=== PATIENT | male | born 1945 | race Caucasian/White ===

== ENCOUNTER 2021-08-15 22:17 | Inpatient (IN) ==
[2021-08-16] MEDS ORDERED: Ondansetron ODT 4 MG TAB.RAPDIS SL PRN (04:55)
[2021-08-16] MEDS ORDERED: Naloxone 0.4 MG/ML INJ IVP PRN (04:55)
[2021-08-16 06:01] LABS: Hemoglobin 10.9 g/dL (12.9-16.9)
[2021-08-16 06:03] LABS: Hematocrit 31.8 % (37.5-50.1); Immature Platelets 17.4 % (1.1-6.1); Mean Corpuscular HGB Conc 34.3 g/dL (31.6-35.5); Mean Corpuscular Hemoglobin 32.8 pg (28.0-33.3); Mean Corpuscular Volume 95.8 fL (83.0-100.0); Mean Platelet Volume 14.1 fL (9.4-12.4); Red Blood Count 3.32 M/mcL (4.19-5.50); Red Cell Distribution Width 13.4 % (11.5-14.5); White Blood Count 16.9 K/mcL (4.3-11.1)
[2021-08-16 06:09] LABS: INR 1.9; Prothrombin Time 20.6 Seconds (9.4-12.1)
[2021-08-16 06:12] LABS: Platelet Count 40 K/mcL (140-400)
[2021-08-16 06:19] LABS: Lymphocytes # 0.7 K/mcL (0.6-4.6); Monocytes # 0.3 K/mcL (0.0-1.3); Neutrophils # 15.6 K/mcL (1.6-8.9); Platelet Estimate Decreased (Normal)
[2021-08-16 06:23] LABS: Albumin 3.1 g/dL (3.5-5.7); Albumin/Globulin Ratio 1.3 (1.1-2.2); Bilirubin,Total 1.9 mg/dL (0.3-1.0); Calcium 7.7 mg/dL (8.6-10.3); Globulin 2.3 g/dL (2.4-3.5); Magnesium 1.9 mg/dL (1.6-2.6); Phosphorous 4.3 mg/dL (2.7-4.5); Potassium 4.2 mEq/L (3.5-5.1); Total Protein 5.4 g/dL (6.4-8.9)
[2021-08-16] MEDS ORDERED: *HR* LORazepam 2 MG/ML VIAL IVP PRN ×3 (07:16)
[2021-08-16] MEDS: Ringers Solution, Lactated 1,000 ML IVC SCH ×2 (07:32→09:59)
[2021-08-16] MEDS: Norepinephrine 4 MG/254 ML IV.SOLN IVC SCH ×2 (07:33→08:37)
[2021-08-16] MEDS: Vitamin B Complex/Vit C/Vit E 1 EACH TABLET PO SCH (08:37)
[2021-08-16] MEDS: Folic Acid 1 MG TABLET PO SCH (08:37)
[2021-08-16] MEDS: Thiamine (B-1) 200 MG in 0.9 % Sodium Chloride 50 ML IVPB SCH (09:57)
[2021-08-16] MEDS ORDERED: Vancomycin 1,500 MG/265 ML IV.SOLN IVPB ONE (10:20)
[2021-08-16] MEDS: Piperacillin/Tazobactam 3.375 GM in 0.9 % Sodium Chloride Mini Bag 100 ML IVPB SCH ×2 (10:34→18:34)
[2021-08-16] MEDS ORDERED: Isovue-370 500 ML BOTTLE IVP ONE (15:28)
[2021-08-16] MEDS ORDERED: Heparin 1,000 UNITS/500 mL 500 ML ONE (16:09)
[2021-08-16] MEDS ORDERED: *HR* Midazolam HCl 2 MG/2 ML VIAL ONE (16:41)
[2021-08-16] MEDS ORDERED: Piperacillin/Tazobactam 3.375 GM in 0.9 % Sodium Chloride Mini Bag 100 ML IVPB SCH (18:00)
[2021-08-17] MEDS ORDERED: Vancomycin 1 EACH in 0.9 % Sodium Chloride 250 ML IVPB PRN (02:00)
[2021-08-17] MEDS: Norepinephrine 4 MG/254 ML IV.SOLN IVC SCH (03:51)
[2021-08-17 04:23] LABS: Hematocrit 30.7 % (37.5-50.1); Hemoglobin 10.7 g/dL (12.9-16.9); Immature Platelets 19.4 % (1.1-6.1); Mean Corpuscular HGB Conc 34.9 g/dL (31.6-35.5); Mean Corpuscular Hemoglobin 33.1 pg (28.0-33.3); Mean Platelet Volume 13.7 fL (9.4-12.4); Red Blood Count 3.23 M/mcL (4.19-5.50); Red Cell Distribution Width 13.7 % (11.5-14.5); White Blood Count 15.7 K/mcL (4.3-11.1)
[2021-08-17 04:30] LABS: INR 1.3
[2021-08-17 04:35] LABS: Platelet Count 39 K/mcL (140-400)
[2021-08-17 04:45] LABS: Albumin 2.9 g/dL (3.5-5.7); Albumin/Globulin Ratio 1.1 (1.1-2.2); Bilirubin,Total 0.9 mg/dL (0.3-1.0); Calcium 7.8 mg/dL (8.6-10.3); Globulin 2.6 g/dL (2.4-3.5); Magnesium 2.2 mg/dL (1.6-2.6); Phosphorous 3.2 mg/dL (2.7-4.5); Potassium 3.8 mEq/L (3.5-5.1); Total Protein 5.5 g/dL (6.4-8.9)
[2021-08-17 04:55] LABS: Lymphocytes # 0.9 K/mcL (0.6-4.6); Monocytes # 0.3 K/mcL (0.0-1.3); Neutrophils # 14.1 K/mcL (1.6-8.9); Platelet Estimate Marked Decrease (Normal)
[2021-08-17] MEDS: Piperacillin/Tazobactam 3.375 GM in 0.9 % Sodium Chloride Mini Bag 100 ML IVPB SCH ×3 (05:39→21:47)
[2021-08-17] MEDS: Vitamin B Complex/Vit C/Vit E 1 EACH TABLET PO SCH (08:07)
[2021-08-17] MEDS: Thiamine (B-1) 200 MG in 0.9 % Sodium Chloride 50 ML IVPB SCH (08:07)
[2021-08-17] MEDS: Folic Acid 1 MG TABLET PO SCH (08:07)
[2021-08-17] MEDS ORDERED: Vancomycin 1,250 MG/262.5 ML IV.SOLN IVPB SCH (14:00)
[2021-08-18] MEDS: Piperacillin/Tazobactam 3.375 GM in 0.9 % Sodium Chloride Mini Bag 100 ML IVPB SCH ×3 (05:01→22:26)
[2021-08-18] MEDS ORDERED: Naloxone 0.4 MG/ML INJ IVP PRN (07:13)
[2021-08-18] MEDS ORDERED: Vancomycin 1 EACH in 0.9 % Sodium Chloride 250 ML IVPB PRN (07:13)
[2021-08-18] MEDS ORDERED: *HR* LORazepam 2 MG/ML VIAL IVP PRN ×3 (07:13)
[2021-08-18] MEDS ORDERED: Perflutren Lipid Microsphere 1.3 ML in 0.9 % Sodium Chloride 8.7 ML IVP PRN (07:13)
[2021-08-18] MEDS ORDERED: Ondansetron ODT 4 MG TAB.RAPDIS SL PRN (07:13)
[2021-08-18] MEDS: Norepinephrine 4 MG/254 ML IV.SOLN IVC SCH (07:17)
[2021-08-18] MEDS: Vitamin B Complex/Vit C/Vit E 1 EACH TABLET PO SCH (08:07)
[2021-08-18] MEDS: Folic Acid 1 MG TABLET PO SCH (08:07)
[2021-08-18] MEDS ORDERED: Thiamine (B-1) 200 MG in 0.9 % Sodium Chloride 50 ML IVPB SCH (09:00)
[2021-08-18 09:40] LABS: Red Cell Distribution Width 13.5 % (11.5-14.5)
[2021-08-18 09:42] LABS: Hematocrit 33.2 % (37.5-50.1); Immature Platelets 21.6 % (1.1-6.1); Mean Corpuscular HGB Conc 33.1 g/dL (31.6-35.5); Mean Corpuscular Hemoglobin 32.2 pg (28.0-33.3); Mean Corpuscular Volume 97.1 fL (83.0-100.0); Mean Platelet Volume 14.5 fL (9.4-12.4); Red Blood Count 3.42 M/mcL (4.19-5.50); White Blood Count 12.7 K/mcL (4.3-11.1)
[2021-08-18 09:47] LABS: Platelet Count 41 K/mcL (140-400)
[2021-08-18 10:02] LABS: Alanine Aminotransferase 71 Units/L (7-52); Albumin/Globulin Ratio 1.2 (1.1-2.2); Alkaline Phosphatase 63 Units/L (34-104); Aspartate Amino Transferase 22 Units/L (13-39); BUN/Creatinine Ratio 31 (6-26); Bilirubin,Total 0.6 mg/dL (0.3-1.0); Blood Urea Nitrogen 43 mg/dL (8-23); Calcium 8.1 mg/dL (8.6-10.3); Carbon Dioxide 25 mEq/L (23-29); Chloride 108 mEq/L (98-107); Globulin 2.5 g/dL (2.4-3.5); Glucose 138 mg/dL (70-105); Osmolality,Calculated 301 (280-300); Sodium 139 mEq/L (136-145); Total Protein 5.5 g/dL (6.4-8.9); eGFR For African Americans > 60 (> 60); eGFR For Non-African Americans 51 (> 60)
[2021-08-18 10:11] LABS: Lymphocytes # 0.5 K/mcL (0.6-4.6); Neutrophils # 12.2 K/mcL (1.6-8.9); Platelet Estimate Decreased (Normal)
[2021-08-18] MEDS ORDERED: Vancomycin 1,250 MG/262.5 ML IV.SOLN IVPB SCH (14:00)
[2021-08-19] MEDS: Piperacillin/Tazobactam 3.375 GM in 0.9 % Sodium Chloride Mini Bag 100 ML IVPB SCH (06:15)
[2021-08-19 06:18] LABS: Eosinophils % 0.2 %; Immature Granulocytes % 2.9 % (0-4)
[2021-08-19 06:20] LABS: Basophils # 0.1 K/mcL (0.0-0.2); Basophils % 0.5 %; Hemoglobin 11.8 g/dL (12.9-16.9); Immature Platelets 23.1 % (1.1-6.1); Lymphocytes # 0.8 K/mcL (0.6-4.6); Lymphocytes % 6.2 %; Mean Corpuscular HGB Conc 32.8 g/dL (31.6-35.5); Mean Corpuscular Hemoglobin 32.2 pg (28.0-33.3); Mean Corpuscular Volume 98.1 fL (83.0-100.0); Mean Platelet Volume 13.9 fL (9.4-12.4); Monocytes # 0.6 K/mcL (0.0-1.3); Monocytes % 4.5 %; Neutrophils # 11.4 K/mcL (1.6-8.9); Red Blood Count 3.67 M/mcL (4.19-5.50); Red Cell Distribution Width 13.5 % (11.5-14.5); Segmented Neutrophils % 85.7 %; White Blood Count 13.3 K/mcL (4.3-11.1)
[2021-08-19 06:23] LABS: Platelet Count 44 K/mcL (140-400)
[2021-08-19 06:35] LABS: Alanine Aminotransferase 58 Units/L (7-52); Albumin/Globulin Ratio 1.3 (1.1-2.2); Alkaline Phosphatase 60 Units/L (34-104); Aspartate Amino Transferase 14 Units/L (13-39); BUN/Creatinine Ratio 34 (6-26); Bilirubin,Direct 0.1 mg/dL (0.0-0.2); Bilirubin,Indirect 0.5 mg/dL (0.0-1.0); Bilirubin,Total 0.6 mg/dL (0.3-1.0); Blood Urea Nitrogen 37 mg/dL (8-23); Calcium 8.1 mg/dL (8.6-10.3); Carbon Dioxide 25 mEq/L (23-29); Chloride 112 mEq/L (98-107); Globulin 2.4 g/dL (2.4-3.5); Glucose 116 mg/dL (70-105); Magnesium 2.1 mg/dL (1.6-2.6); Osmolality,Calculated 302 (280-300); Phosphorous 2.3 mg/dL (2.7-4.5); Potassium 3.8 mEq/L (3.5-5.1); Sodium 141 mEq/L (136-145); Total Protein 5.4 g/dL (6.4-8.9); eGFR For African Americans > 60 (> 60); eGFR For Non-African Americans > 60 (> 60)
[2021-08-19] MEDS: Folic Acid 1 MG TABLET PO SCH (09:12)
[2021-08-19] MEDS: Vitamin B Complex/Vit C/Vit E 1 EACH TABLET PO SCH (09:12)
[2021-08-19 10:40] LABS: C-Reactive Protein 35 mg/L (Less than 10)
[2021-08-19] MEDS: lisinopriL 20 MG TABLET PO SCH (15:15)
[2021-08-19] MEDS: Aspirin Enteric Coated 81 MG Tablet PO SCH (15:15)
[2021-08-19] MEDS: Gabapentin 300 MG CAPSULE PO SCH ×2 (15:15→20:30)
[2021-08-19] MEDS: cefTRIAXone 1,000 MG in 0.9 % Sodium Chloride Mini Bag 100 ML IVPB SCH (15:15)
[2021-08-20 03:10] LABS: Basophils # 0.1 K/mcL (0.0-0.2); Basophils % 0.8 %; Eosinophils # 0.1 K/mcL (0.0-0.6); Hematocrit 35.5 % (37.5-50.1); Hemoglobin 11.6 g/dL (12.9-16.9); Immature Granulocytes % 4.7 % (0-4); Immature Platelets 19.2 % (1.1-6.1); Lymphocytes # 0.9 K/mcL (0.6-4.6); Lymphocytes % 11.1 %; Mean Corpuscular HGB Conc 32.7 g/dL (31.6-35.5); Mean Corpuscular Hemoglobin 32.4 pg (28.0-33.3); Mean Corpuscular Volume 99.2 fL (83.0-100.0); Mean Platelet Volume 13.9 fL (9.4-12.4); Monocytes # 0.7 K/mcL (0.0-1.3); Monocytes % 9.2 %; Neutrophils # 5.8 K/mcL (1.6-8.9); Red Blood Count 3.58 M/mcL (4.19-5.50); Red Cell Distribution Width 13.5 % (11.5-14.5); Segmented Neutrophils % 73.2 %; White Blood Count 7.9 K/mcL (4.3-11.1)
[2021-08-20 03:15] LABS: Platelet Count 43 K/mcL (140-400)
[2021-08-20 03:28] LABS: BUN/Creatinine Ratio 33 (6-26); Blood Urea Nitrogen 32 mg/dL (8-23); Calcium 8.1 mg/dL (8.6-10.3); Carbon Dioxide 26 mEq/L (23-29); Chloride 110 mEq/L (98-107); Glucose 102 mg/dL (70-105); Osmolality,Calculated 299 (280-300); Potassium 3.7 mEq/L (3.5-5.1); Sodium 141 mEq/L (136-145); eGFR For African Americans > 60 (> 60); eGFR For Non-African Americans > 60 (> 60)
[2021-08-20 04:03] LABS: Hepatitis B Surface Antigen Nonreactive (Nonreactive)
[2021-08-20 04:32] LABS: Hepatitis B Core IgM Nonreactive (Nonreactive)
[2021-08-20 04:33] LABS: HIV-1&2 Antibody & p24 Ag Nonreactive (Nonreactive); Hepatitis A Antibody IgM Nonreactive (Nonreactive); Hepatitis C Virus Antibody Nonreactive (Nonreactive)
[2021-08-20] MEDS: Gabapentin 300 MG CAPSULE PO SCH ×3 (08:37→21:19)
[2021-08-20] MEDS: Folic Acid 1 MG TABLET PO SCH (08:37)
[2021-08-20] MEDS: Aspirin Enteric Coated 81 MG Tablet PO SCH (08:37)
[2021-08-20] MEDS: Vitamin B Complex/Vit C/Vit E 1 EACH TABLET PO SCH (08:37)
[2021-08-20] MEDS: lisinopriL 20 MG TABLET PO SCH (08:37)
[2021-08-20] MEDS: cefTRIAXone 1,000 MG in 0.9 % Sodium Chloride Mini Bag 100 ML IVPB SCH (14:11)
[2021-08-20] MEDS ORDERED: polyethylene glycoL 3350 17 GM POWD.PACK PO PRN (22:55)
[2021-08-21 03:28] VITALS: TEMP 97.8
[2021-08-21 07:15] VITALS: BP 110/57; PULSE 62; O2SAT 94
[2021-08-21] MEDS: Folic Acid 1 MG TABLET PO SCH (08:43)
[2021-08-21] MEDS: Gabapentin 300 MG CAPSULE PO SCH (08:43)
[2021-08-21] MEDS: lisinopriL 20 MG TABLET PO SCH (08:44)
[2021-08-21] MEDS: Aspirin Enteric Coated 81 MG Tablet PO SCH (08:44)
[2021-08-21] MEDS: Vitamin B Complex/Vit C/Vit E 1 EACH TABLET PO SCH (08:44)
== END 2021-08-21 12:06 | disposition home or self-care (01) | DRG 871 ==
LOC: 2NNU → SUATTDRO 08-16 05:45 → 3BNU 08-18 12:39
PROVIDERS: ADMIT Internal Medicine; ATTEND Internal Medicine